=== PATIENT | female | born 1975 | race Caucasian/White ===

== ENCOUNTER 2016-11-25 01:01 | Outpatient (CLI) | payer OTHER ==
[2016-11-25 01:41] VITALS: BMI 28.5
[2016-11-25 01:43] LABS: PH,URINE 6.5 (5.0-8.0); URINE BILIRUBIN NEGATIVE (NEGATIVE); URINE BLOOD NEGATIVE (NEGATIVE); URINE GLUCOSE (UA) NEGATIVE (NEGATIVE); URINE LEUKOCYTE ESTERASE 2+ (NEGATIVE); URINE NITRITE NEGATIVE (NEGATIVE); URINE PROTEIN NEGATIVE (NEGATIVE); URINE UROBILINOGEN NORMAL (0-1 mg/dl)
[2016-11-25 01:44] LABS: URINE APPEARANCE HAZY; URINE COLOR YELLOW
[2016-11-25 01:48] LABS: URINE BACTERIA 2+; URINE EPITHELIAL CELLS MANY /hpf; URINE MUCUS 1+; URINE RBC 0-1 /hpf; URINE WBC 15-20 /hpf
== END 2016-11-25 03:26 | disposition home or self-care (01) ==
LOC: FBC 01:01 → FBCOUT 01:01
PROVIDERS: ATTEND Obstetrics & Gynecology
DX: O26.899 Other specified pregnancy related conditions, unspecified trimester (principal); Z3A.00 Weeks of gestation of pregnancy not specified
CPT/HCPCS: 82731; 81001; 59050; 81002; G0463

== ENCOUNTER 2016-11-28 11:33 | Outpatient (CLI) | payer OTHER ==
[2016-11-28 12:11] VITALS: BMI 28.4
[2016-11-28 12:16] LABS: SPECIFIC GRAVITY 1.015 (1.001-1.030); URINE BILIRUBIN NEGATIVE (NEGATIVE); URINE BLOOD NEGATIVE (NEGATIVE); URINE GLUCOSE (UA) NEGATIVE (NEGATIVE); URINE LEUKOCYTE ESTERASE NEGATIVE (NEGATIVE); URINE NITRITE NEGATIVE (NEGATIVE); URINE PROTEIN NEGATIVE (NEGATIVE); URINE UROBILINOGEN NORMAL (0-1 mg/dl)
[2016-11-28 12:22] LABS: URINE APPEARANCE CLEAR; URINE COLOR YELLOW
--- NOTE | 2016-11-28 13:27 | US ---
Exam: Limited obstetric ultrasound greater than 14 weeks COMPARISON: 06/10/2016 INDICATION: Ripping feeling, abdominal pain, concern for placental abruption. MGA 30 weeks 5 days. Findings: Real-time sonographic imaging demonstrated a single live intrauterine in cephalic presentation with a heart rate of 167 bpm. Amniotic fluid volume is subjectively normal. There is a fundal placenta, without evidence of previa. No retroplacental fluid collections are seen. A few small placental lakes are identified measuring up to 12 x 9 x 29 mm. Placenta is otherwise homogeneous in echotexture. IMPRESSION: No sonographic evidence of placental abruption. Report given to Aishwarya in the [facility] 1324 hours 11/28/2016.
== END 2016-11-28 13:50 | disposition home or self-care (01) ==
LOC: FBC 11:33 → FBCOUT 11:33
PROVIDERS: ATTEND Obstetrics & Gynecology
DX: O26.893 Other specified pregnancy related conditions, third trimester (principal); R10.9 Unspecified abdominal pain; Z3A.30 30 weeks gestation of pregnancy

== ENCOUNTER 2016-12-30 13:50 | Outpatient (CLI) | payer OTHER | END 2016-12-30 15:10 | disposition home or self-care (01) | LOC: FBCOUT 13:50 → FBC 13:50 → FBCOUT 15:10 | PROVIDERS: ATTEND Obstetrics & Gynecology | DX: O47.9 False labor, unspecified (principal); O09.529 Supervision of elderly multigravida, unspecified trimester; Z3A.00 Weeks of gestation of pregnancy not specified | CPT/HCPCS: 59025; 81002; G0463 ==

== ENCOUNTER 2016-12-31 22:20 | Outpatient (CLI) | payer OTHER ==
[2016-12-31 23:22] VITALS: BMI 29.8
== END 2017-01-01 02:25 | disposition home or self-care (01) ==
LOC: FBCOUT 22:20 → FBC 22:20 → FBCOUT 01-01 02:25
PROVIDERS: ATTEND Obstetrics & Gynecology
DX: O47.9 False labor, unspecified (principal); O09.529 Supervision of elderly multigravida, unspecified trimester; Z3A.00 Weeks of gestation of pregnancy not specified
CPT/HCPCS: 59025; 81002; G0463

== ENCOUNTER 2017-01-09 06:53 | Inpatient (IN) | payer OTHER ==
[2017-01-25] MEDS ORDERED: OXYTOCIN IN LR 500 ML IV ONE ×2 (07:54→08:28)
[2017-01-25] MEDS ORDERED: LACTATED RINGERS 1,000 ML IV PRN (07:54)
[2017-01-25] MEDS ORDERED: PENICILLIN G POTASSIUM 5 MMU in NS 0.9% (MINI-BAG PLUS) 100 ML IV ONE (07:54)
[2017-01-25] MEDS ORDERED: LACTATED RINGERS 1,000 ML IV SCH (08:00)
[2017-01-25 08:23] VITALS: BMI 30.2
[2017-01-25] MEDS ORDERED: LIDOCAINE 1% (PRES FREE) 30 ML VIAL ONE (08:27)
[2017-01-25] MEDS ORDERED: MINERAL OIL 25 ML BOT ONE (08:27)
[2017-01-25] MEDS ORDERED: LIDOCAINE Viscous 2% 15 ML UDCUP ONE (08:27)
[2017-01-25] MEDS ORDERED: PUMP TUBING ONE (08:27)
[2017-01-25] MEDS ORDERED: OXYTOCIN 10 UNITS/ML VIAL ONE (08:27)
[2017-01-25] MEDS ORDERED: PENICILLIN G POTASSIUM 5 MMU VIAL ONE (08:29)
[2017-01-25] MEDS ORDERED: IV START KIT ONE (08:29)
[2017-01-25] MEDS ORDERED: NS 0.9% (MINI-BAG PLUS) 100 ML IV ONE (08:29)
[2017-01-25 08:45] LABS: HEMATOCRIT 28.1 % (37.0-47.0); HEMOGLOBIN 9.5 gm/l (12.0-16.0); MEAN CELL VOLUME 90.6 fl (81.0-99.0); MEAN CORPUSCULAR HEMOGLOBIN 30.6 pg (27.0-31.0); MEAN CORPUSCULAR HGB CONC 33.8 g/dl (33.0-37.0); RED CELL DISTRIBUTION WIDTH 13.1 % (11.5-14.5)
--- NOTE | 2017-01-25 09:34 | PCMAN ---
OB Admission Note - History : 5 Term: 2 : 2 Livin Gestational Age (weeks): 39 Days (#/7): 0 Admit Presentaton:: vtx Membrane Status: Intact Heart Rate:: 144 (category 1) - Labs Blood Type: A (-) negative GBS Status: Positive (Pitocin induction, advanced maternal age)
[2017-01-25] MEDS: OXYTOCIN IN LR 500 ML IV PRN ×9 (10:00→18:00)
[2017-01-25] MEDS: PENICILLIN G 3 MIL UNIT PREMIX 3 MMU in Premix (D5W) 50 ml 1 EACH IV SCH ×2 (13:35→17:31)
[2017-01-25] MEDS ORDERED: PENICILLIN G 3 MIL UNIT PREMIX 50 ML IV ONE ×2 (13:40→17:27)
[2017-01-25] MEDS ORDERED: FENTANYL/ROPIVACAINE EPIDURAL 250 ML EP ONE (13:41)
[2017-01-25] MEDS ORDERED: EPIDURAL PUMP SET ONE (13:41)
[2017-01-25] MEDS: LACTATED RINGERS 1,000 ML IV SCH ×4 (14:15→19:10)
[2017-01-25] MEDS ORDERED: EPIDURAL PROCEDURE TRAY ONE (14:26)
[2017-01-25] MEDS: FENTANYL/ROPIVACAINE EPIDURAL 250 ML EP SCH (14:45)
[2017-01-25] MEDS ORDERED: LACTATED RINGERS 500 ML IV PRN (14:55)
[2017-01-25] MEDS ORDERED: DIPHENHYDRAMINE HCL 50 MG/1 ML VIAL IV PRN (14:55)
[2017-01-25] MEDS ORDERED: METOCLOPRAMIDE HCL 5 MG/ML 2ML VIAL IV PRN (14:55)
[2017-01-25] MEDS ORDERED: NALOXONE HCL 0.4 MG/ML VIAL IV PRN (14:55)
[2017-01-25] MEDS ORDERED: EPHEDRINE SULFATE 50 MG/ML 1ML VIAL IV PRN (14:55)
[2017-01-25] MEDS ORDERED: SODIUM CHLORIDE 0.9% 500 ML IV PRN (14:55)
[2017-01-25] MEDS ORDERED: NALBUPHINE HCL 20 MG/ML AMP IV PRN (14:55)
[2017-01-25] MEDS ORDERED: ONDANSETRON 4 MG/2ML 2 ML VIAL IV PRN (14:55)
--- NOTE | 2017-01-25 17:13 | PDOC36 ---
Provider Note Note: cx /-2. IUPC placed.
[2017-01-25] MEDS ORDERED: MINERAL OIL 25 ML BOT PO ONE (20:38)
--- NOTE | 2017-01-25 20:51 | PCMDEL ---
Delivery Note - Delivery Delivery (Date): 01/25/17 Gender: Female Presentation: Cephalic Position: OA Umbilical Cord: 3 Vessel Delayed Cord Clamping:: < 1 min Placenta:: spontaneous and complete EBL:: 300 ml Perineum:: small midline 2nd degree tear Suture:: 2-0 chromic Anesthesia/Meds:: epidural
[2017-01-25] MEDS ORDERED: BENZOCAINE/MENTHOL 60 APPLIC/BOT TP PRN (20:57)
[2017-01-25] MEDS ORDERED: LANOLIN 50 APPLIC/7G TUBE TP PRN (20:57)
[2017-01-25] MEDS ORDERED: DIPHTH,PERTUSS(ACELL),TET VAC 0.5 ML VIAL IM V ONE (20:57)
[2017-01-25] MEDS ORDERED: MEASLES,MUMPS&RUBELLA VACCINE 0.5 ML VIAL SUB-Q V ONE (20:57)
[2017-01-25] MEDS ORDERED: FLU VACC 2016-17 (36MO-64Y)/PF 60 MCG/0.5 ML SYRINGE IM V ONE (21:05)
[2017-01-25] MEDS: IBUPROFEN 800 MG TABLET PO PRN (22:02)
[2017-01-25] MEDS: FERROUS SULFATE (65 Fe) 325 MG TABLET PO SCH (22:02)
[2017-01-26] MEDS: IBUPROFEN 800 MG TABLET PO PRN ×2 (05:48→12:24)
[2017-01-26 08:18] LABS: HEMATOCRIT 27.7 % (37.0-47.0)
[2017-01-26] MEDS: FERROUS SULFATE (65 Fe) 325 MG TABLET PO SCH ×2 (09:06→22:33)
[2017-01-26] MEDS: DOCUSATE SODIUM 100 MG CAPSULE PO SCH (09:06)
[2017-01-26] MEDS: HYDROCODONE/ACETAMINOPHEN 5/325MG TABLET PO PRN ×2 (09:09→14:23)
--- NOTE | 2017-01-26 09:24 | PDOC44 ---
- Subjective Day: 1 Reports Pain Tolerable, Reports , Reports Lochia Light, Reports Tolerating Regular Diet - Objective Temp Pulse Resp BP Pulse Ox 97.8 F 59 18 110/71 01/26/17 07:31 01/26/17 07:31 01/26/17 07:31 01/26/17 07:31 Lab Results 01/26/17 08:05 Hgb 9.0 L Hct 27.7 L Current Medications Generic Name Dose Route Start Last Admin Trade Name Freq PRN Reason Stop Dose Admin Acetaminophen/Hydrocodone Bitart 1 - 2 tab 01/25/17 20:57 01/26/17 09:09 [place] 5/325 PO 1 tab Q4H PRN Administration Pain (Moderate) Benzocaine/Menthol 1 applic 01/25/17 20:57 01/26/17 03:33 Dermoplast TP 1 bot PRN PRN Administration Patient Comfort Docusate Sodium 100 mg 01/26/17 09:00 01/26/17 09:06 Colace PO 100 mg DAILY ROBBIE Administration Emollient Ointment 1 applic 01/25/17 20:57 01/26/17 03:34 Ibq-X-Syzxym TP 1 tube PRN PRN Administration sore nipples Ferrous Sulfate 325 mg 01/25/17 21:00 01/26/17 09:06 Ferrous Sulfate PO 325 mg BID ROBBIE Administration Ropivacaine/Fentanyl/NS 250 mls @ 0 mls/hr 01/26/17 06:00 01/25/17 14:45 Fentanyl 2 Mcg/Ml + Ropivacaine 0.125% Ep Bag EP 15 mls/hr EPI ROBBIE Administration Protocol Per Protocol Ibuprofen 800 mg 01/25/17 20:57 01/26/17 05:48 Motrin PO 800 mg Q6H PRN Administration Pain (Mild) Sodium Chloride 10 ml 01/25/17 20:57 Normal Saline 10ml Flush IV PRN PRN IV Flush - Physical Exam General: Afebrile Psych/Mental Status: Mood/Affect Appropriate Breast: Soft Fundus: Firm Abdomen: Normal Bowel Sounds Genitourinary: Normal Female Genitalia Disposition: Stable, Anticipate DC Home Tomorrow
[2017-01-26] MEDS: ONDANSETRON 4 MG ODT TAB PO PRN (17:23)
[2017-01-27] MEDS: HYDROCODONE/ACETAMINOPHEN 5/325MG TABLET PO PRN (00:46)
[2017-01-27] MEDS: IBUPROFEN 800 MG TABLET PO PRN ×3 (00:46→16:17)
[2017-01-27] MEDS: ONDANSETRON 4 MG ODT TAB PO PRN (02:19)
[2017-01-27] MEDS: FERROUS SULFATE (65 Fe) 325 MG TABLET PO SCH (10:31)
[2017-01-27] MEDS: DOCUSATE SODIUM 100 MG CAPSULE PO SCH (10:31)
--- NOTE | 2017-01-27 10:31 | PDOC44 ---
- Subjective Day: 2 Reports Pain Tolerable, Reports , Reports Lochia Light, Reports Tolerating Regular Diet - Objective Temp Pulse Resp BP Pulse Ox 98.6 F 55 18 111/67 01/27/17 08:22 01/27/17 08:22 01/27/17 08:22 01/27/17 08:22 Current Medications Generic Name Dose Route Start Last Admin Trade Name Freq PRN Reason Stop Dose Admin Acetaminophen/Hydrocodone Bitart 1 - 2 tab 01/25/17 20:57 01/27/17 00:46 [place] 5/325 PO 1 tab Q4H PRN Administration Pain (Moderate) Benzocaine/Menthol 1 applic 01/25/17 20:57 01/26/17 03:33 Dermoplast TP 1 bot PRN PRN Administration Patient Comfort Docusate Sodium 100 mg 01/26/17 09:00 01/26/17 09:06 Colace PO 100 mg DAILY ROBBIE Administration Emollient Ointment 1 applic 01/25/17 20:57 01/26/17 03:34 Rdk-X-Duxwwu TP 1 tube PRN PRN Administration sore nipples Ferrous Sulfate 325 mg 01/25/17 21:00 01/26/17 22:33 Ferrous Sulfate PO 325 mg BID ROBBIE Administration Ropivacaine/Fentanyl/NS 250 mls @ 0 mls/hr 01/26/17 06:00 01/25/17 14:45 Fentanyl 2 Mcg/Ml + Ropivacaine 0.125% Ep Bag EP 15 mls/hr EPI ROBBIE Administration Protocol Per Protocol Ibuprofen 800 mg 01/25/17 20:57 01/27/17 00:46 Motrin PO 800 mg Q6H PRN Administration Pain (Mild) Ondansetron HCl 8 mg 01/26/17 17:11 01/27/17 02:19 Zofran Odt PO 8 mg Q6H PRN Administration Nausea/Vomiting Sodium Chloride 10 ml 01/25/17 09:00 01/25/17 18:03 Normal Saline 10ml Flush IV Not Given Q8HR ROBBIE Sodium Chloride 10 ml 01/25/17 20:57 Normal Saline 10ml Flush IV PRN PRN IV Flush - Physical Exam General: Afebrile Psych/Mental Status: Mood/Affect Appropriate Breast: Soft Fundus: Firm Abdomen: Normal Bowel Sounds Genitourinary: Normal Female Genitalia Disposition: Stable, Anticipate DC to Home
[2017-01-27] MEDS: FENTANYL/ROPIVACAINE EPIDURAL 250 ML EP SCH (12:11)
[2017-01-27 14:50] VITALS: BP 123/58
== END 2017-01-27 17:55 | disposition home or self-care (01) | DRG 775 ==
LOC: EDSTATUS 06:53 → FBC 01-25 06:54 → UNDOADMIN 01-25 06:54 → FBC 01-25 07:07
PROVIDERS: ADMIT Obstetrics & Gynecology; ATTEND Obstetrics & Gynecology
PROC: 10E0XZZ Delivery of Products of Conception, External Approach (ICD-10-PCS; principal; 2017-01-25)
PROC: 0KQM0ZZ Repair Perineum Muscle, Open Approach (ICD-10-PCS; 2017-01-25)
PROC: 10H07YZ Insertion of Other Device into Products of Conception, Via Natural or Artificial Opening (ICD-10-PCS; 2017-01-25)
PROC: 4A1H7FZ Monitoring of Products of Conception, Cardiac Rhythm, Via Natural or Artificial Opening (ICD-10-PCS; 2017-01-25)
DX: O99.824 Streptococcus B carrier state complicating childbirth (principal); O09.523 Supervision of elderly multigravida, third trimester; O09.43 Supervision of pregnancy with grand multiparity, third trimester; Z3A.39 39 weeks gestation of pregnancy; Z37.0 Single live birth

== ENCOUNTER 2017-01-09 11:52 | Outpatient (CLI) | payer OTHER ==
[2017-01-09 12:12] VITALS: BMI 29.8
--- NOTE | 2017-01-09 13:40 | PDOC36 ---
Provider Note Subject: Decreased movement Note: Jemima is a 41yo G5 para 4004, youngest 11years old, who noticed decreased movement this morning other than an episode of hiccups. Dr Florez recommended that she come in for evaluation. As soon as she got on the monitor, baby "Lynn" began moving more. Pre colt record reviewed. High risk only due to age. Rh neg. H/o PTL. GBS pos. O: VS all normal Pt is showing some uterine activity but not a labor pattern. FH 135 baseline with moderate variability. Occ variable decelerations of short duration. No worrisome pattern. Vag exam by RN shows cephalic presentation, but no cervical change. Imp: Reactive NST, no worrisome findings. Plan: Pt will return if any further concerns or if sx continue. Otherwise follow up with Dr Florez.
== END 2017-01-09 13:27 | disposition home or self-care (01) ==
LOC: FBC 11:52 → FBCOUT 11:52
PROVIDERS: ATTEND Obstetrics & Gynecology
DX: O36.8190 Decreased fetal movements, unspecified trimester, not applicable or unspecified (principal); O99.820 Streptococcus B carrier state complicating pregnancy; O76 Abnormality in fetal heart rate and rhythm complicating labor and delivery; O09.219 Supervision of pregnancy with history of pre-term labor, unspecified trimester; O09.529 Supervision of elderly multigravida, unspecified trimester; Z3A.00 Weeks of gestation of pregnancy not specified
CPT/HCPCS: 59025; 81002; G0463

== ENCOUNTER 2017-01-14 22:22 | Outpatient (CLI) | payer OTHER ==
[2017-01-14 22:47] VITALS: BMI 29.4
== END 2017-01-15 00:55 | disposition home or self-care (01) ==
LOC: FBC 22:22 → FBCOUT 22:22
PROVIDERS: ATTEND Obstetrics & Gynecology
DX: O47.9 False labor, unspecified (principal); O09.529 Supervision of elderly multigravida, unspecified trimester; Z3A.00 Weeks of gestation of pregnancy not specified
CPT/HCPCS: 59025; G0463

== ENCOUNTER 2017-01-28 15:25 | Outpatient (CLI) | payer OTHER | END 2017-01-28 15:26 | disposition home or self-care (01) | LOC: BABIESSH 15:25 | PROVIDERS: ATTEND Obstetrics & Gynecology | DX: Z39.1 Encounter for care and examination of lactating mother (principal) ==